=== PATIENT | male | born 1990 | race Caucasian/White ===

== ENCOUNTER 2024-08-06 09:57 | Emergency (ER) | payer MEDICAID ==
[~2024-08-06] VITALS: Ht 165.1 cm; Wt 82.5 kg
[2024-08-06 10:24] VITALS: TEMP 97.8
[2024-08-06] MEDS ORDERED: BENZ-38 PO (12:03)
[2024-08-06 12:18] VITALS: BP 126/75; PULSE 87; RESP 15; O2SAT 99
== END 2024-08-06 12:23 | disposition home or self-care (01) ==
LOC: ER 09:58
DX: J22 Unspecified acute lower respiratory infection (principal)
CPT/HCPCS: 71045; 99283

== ENCOUNTER 2024-10-06 10:27 | Emergency (ER) | payer MEDICAID ==
[~2024-10-06] VITALS: Ht 170.2 cm; Wt 79.5 kg
[2024-10-06 10:37] VITALS: BP 116/72; PULSE 83; RESP 18; O2SAT 99
[2024-10-06 11:33] VITALS: TEMP 98.4
== END 2024-10-06 11:35 | disposition home or self-care (01) ==
LOC: ER 10:27
DX: Z02.9 Encounter for administrative examinations, unspecified (principal); F11.90 Opioid use, unspecified, uncomplicated
CPT/HCPCS: 99281

== ENCOUNTER 2024-12-02 03:45 | Emergency (ER) | payer MEDICAID ==
[~2024-12-02] VITALS: Ht 170.2 cm; Wt 81.4 kg
[2024-12-02] MEDS: ketorolac trometh 30MG/ML vial 30 MG/ML VIAL IM ONE (04:31)
[2024-12-02] MEDS: TETanus/Pertussis (Acell)/Diphther VAC/PF (Tdap-Adult) 0.5ml syringe IMVAC ONE (04:35)
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
[2024-12-02 05:08] LABS: BASOPHILS # (AUTO) 0.1 X10'3 (0-0.2); EOSINOPHILS # (AUTO) 0.1 X10'3 (0-0.9); EOSINOPHILS % (AUTO) 0.9 % (0-6); HEMATOCRIT 39.5 % (42.0-52.0); HEMOGLOBIN 13.3 g/dl (14.0-17.9); LYMPHOCYTES # (AUTO) 3.4 X10'3 (1.1-4.8); LYMPHOCYTES % (AUTO) 43.4 % (21-51); MEAN CORPUSCULAR HEMOGLOBIN 29.6 PG (27.0-31.0); MEAN CORPUSCULAR HGB CONC 33.8 g/dL (33.0-36.5); MEAN CORPUSCULAR VOLUME 87.7 FL (78-98); MEAN PLATELET VOLUME 7.5 FL (7.4-10.4); MONOCYTES # (AUTO) 0.9 X10'3 (0-0.9); MONOCYTES % (AUTO) 11.5 % (2-12); NEUTROPHILS # (AUTO) 3.3 X10'3 (1.8-7.7); NEUTROPHILS % (AUTO) 43.2 % (42-75); PLATELET COUNT 217 X10'3 (140-440); RED CELL DISTRIBUTION WIDTH 14.8 % (11.5-14.5); WHITE BLOOD COUNT 7.7 X10'3 (4.5-11.0)
[2024-12-02 05:22] LABS: ALBUMIN 3.6 G/DL (3.4-5.0); ANION GAP 12 (8-16); BLOOD UREA NITROGEN 9 MG/DL (7-18); BUN/CREATININE RATIO 7.9 (10.0-20.0); CALCIUM 7.9 MG/DL (8.5-10.1); CHLORIDE 103 MMOL/L (99-107); CREATININE 1.14 MG/DL (0.60-1.10); ETHANOL 105 MG/DL (<10); GLUCOSE 144 MG/DL (70-104); SODIUM 141 MMOL/L (135-145); TOTAL CARBON DIOXIDE 25.9 MMOL/L (24-32); eCRCL 85 ML/MIN; eGFR 73 ML/MIN
[2024-12-02 05:44] LABS: POTASSIUM 2.7 MMOL/L (3.5-5.1)
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
[2024-12-02] MEDS ORDERED: potassium bicarbonate/cit acid 25mEq tablet.effervescent PO SCH (06:00)
[2024-12-02] MEDS: LIDOcaine 1% 30ml preserv. free vial SQ STA (06:04)
[2024-12-02 06:25] VITALS: BP 138/77; PULSE 87; RESP 20; O2SAT 99
[2024-12-02 07:11] VITALS: TEMP 98.6
[2024-12-02] MEDS: POTASSIUM BICARB 20meq eff tab 20 MEQ TABLET.EFF PO SCH (07:14)
== END 2024-12-02 07:18 | disposition home or self-care (01) ==
LOC: ER 03:45
DX: S61.212A Laceration without foreign body of right middle finger without damage to nail, initial encounter (principal); S60.221A Contusion of right hand, initial encounter; F12.90 Cannabis use, unspecified, uncomplicated; G89.11 Acute pain due to trauma; Y04.8XXA Assault by other bodily force, initial encounter; Y93.89 Activity, other specified; Y92.89 Other specified places as the place of occurrence of the external cause; Y99.8 Other external cause status
CPT/HCPCS: 12001; 36415; 73130; 80048; 80320; 85025; 90471; 90715; 96372; 99284; J1885; J2003; J7030; A6449

== ENCOUNTER 2024-12-07 00:26 | Emergency (ER) | payer MEDICAID ==
[~2024-12-07] VITALS: Ht 170.2 cm; Wt 75.0 kg
[2024-12-07] MEDS: sulfamethoxazole/trimethoprim DS (800/160mg) tablet PO ONE (01:38)
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
[2024-12-07] MEDS ORDERED: SULF1TAB45 PO (01:59)
[2024-12-07 02:33] VITALS: BP 116/76; PULSE 82; RESP 16; TEMP 98.2; O2SAT 99
== END 2024-12-07 02:45 | disposition home or self-care (01) ==
LOC: ER 00:27
DX: T81.49XA Infection following a procedure, other surgical site, initial encounter (principal); Y92.89 Other specified places as the place of occurrence of the external cause
CPT/HCPCS: 99283

== ENCOUNTER 2024-12-09 00:14 | Emergency (ER) | payer MEDICAID ==
[~2024-12-09] VITALS: Ht 170.2 cm; Wt 75.5 kg
[~2024-12-09 00:14] MED LIST: SULF1TAB45 PO
[2024-12-09 00:19] VITALS: TEMP 98.2
[2024-12-09] MEDS: LIDOcaine 1% W/epiNEPHrine 1:100,000 20ml vial SQ ONE (03:20)
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
[2024-12-09 04:21] VITALS: BP 145/76; PULSE 90; RESP 18; O2SAT 99
== END 2024-12-09 04:22 | disposition home or self-care (01) ==
LOC: ER 00:15
DX: S61.212D Laceration without foreign body of right middle finger without damage to nail, subsequent encounter (principal); X58.XXXD Exposure to other specified factors, subsequent encounter
CPT/HCPCS: 96372; 99283; A6222; J3490; 99281

== ENCOUNTER → 2024-12-18 | Emergency (ER) | payer MEDICAID ==
[~2024-12-18] VITALS: Ht 172.7 cm; Wt 65.0 kg
[2024-12-18 01:13] VITALS: BP 145/65; PULSE 75; RESP 15; TEMP 96.8; O2SAT 99
== END | disposition left against medical advice (07) ==
LOC: ER 02:42
DX: S61.411A Laceration without foreign body of right hand, initial encounter (principal); Z53.21 Procedure and treatment not carried out due to patient leaving prior to being seen by health care provider; W45.8XXA Other foreign body or object entering through skin, initial encounter; Y93.89 Activity, other specified; Y92.89 Other specified places as the place of occurrence of the external cause; Y99.8 Other external cause status

== ENCOUNTER 2025-02-27 19:50 | Emergency (ER) | payer MEDICAID ==
[~2025-02-27] VITALS: Ht 170.2 cm; Wt 71.5 kg
[2025-02-27 21:05] VITALS: BP 113/75; PULSE 101; RESP 17; TEMP 98.4; O2SAT 96
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
== END 2025-02-27 21:55 | disposition left against medical advice (07) ==
LOC: ER 19:51
DX: R42 Dizziness and giddiness (principal); R55 Syncope and collapse; R51.9 Headache, unspecified
CPT/HCPCS: 99283

== ENCOUNTER 2025-04-30 10:02 | Emergency (ER) | payer MEDICAID ==
[~2025-04-30] VITALS: Ht 170.2 cm; Wt 74.6 kg
[2025-04-30 10:11] VITALS: TEMP 97.9
--- NOTE | 2025-04-30 14:37 | RADIOLOGY REPORT ---
CHEST RADIOGRAPH Indication: Cough, diminshed to ausc Technique: Frontal and lateral view of the chest was obtained Comparison: DI CHEST,SINGLE VIEW on DOS: 08/06/24 FINDINGS: Lines and Tubes: None Lungs: Clear Pleura: No effusion. No pneumothorax. Cardiomediastinal contours: Unremarkable Bones: Unremarkable IMPRESSION: No evidence of acute disease.
[2025-04-30 15:14] LABS: STREP A SCREEN NEGATIVE (Neg)
--- NOTE | 2025-04-30 16:02 | Physician Documentation ---
History of Present Illness ~ Chief Complaint: Cold, cough & congestion Stated Complaint: COLD SYMPTOMS Time Seen by MD: 14:00 Primary Medical Doctor: NONE HPI Patient is a 34-year-old male that presents to the emergency department for evaluation of cough cold congestion x4 days. Patient reports possible fevers denies nausea vomiting diarrhea at this time. Patient reports that his specific symptoms or congestion in his nose pressure in his head cough and congestion in his chest. Patient denies any other symptoms at this time. Medication Reconciliation Allergies: Coded Allergies: No Known Allergies (Unverified , 04/30/25) Review of Systems ROS As stated above in the HPI, otherwise all systems are reviewed and negative. Physical Exam Vital Signs: Temperature: 97.9, Source: Temporal, Heart Rate: 84, Respiratory Rate: 16, BP: 119/84, Pulse Oximetry: 98, Weight: 74.600 Oxygen Flow Rate: 0 Physical Exam VITALS: Reviewed and as above. GENERAL: Alert, no apparent distress. HEENT: Normocephalic, atraumatic, PERRL, EOMI, dry mucosa, no erythema, congestion and rhinorrhea noted. RESPIRATORY: Lungs clear, normal breath sounds, no respiratory distress. CHEST: No accessory muscle use, no retractions, mild rhonchi with auscultation cleared with coughing. CV: Regular rate, rhythm, no edema, no murmur, No: JVD GI: Soft, non-tender, bowels sounds present, no rebound, guarding, or rigidity BACK: No CVA tenderness, or swelling MUSCULOSKELETAL No deformities, no edema SKIN: Warm and dry, no rash NEURO: Oriented x4, No motor or sensory deficit PSYCH: Normal mood and affect, no agitation Progress Results/Orders Results/Orders Orders - NATIVIDAD ALBARRAN Chest,Two Views (04/30/25 14:22) Influenza Type A&B Rapid Test (04/30/25 15:05) Cult Throat + R/O Beta Strep (04/30/25 15:14) Completed Orders - NATIVIDAD ALBARRAN Strep A Rapid (04/30/25 14:22) Chest,Two Views (04/30/25 14:22) Vital Signs 04/30/25 10:11 Temp 97.9 Pulse 84 Resp 16 B/P (MAP) 119/84 Pulse Ox 98 O2 Flow Rate 0 Laboratory Tests Test 04/30/25 14:45 04/30/25 15:13 Group A Streptococcus Rapid Negative Medical Decision Making Additional information obtaine: other Findings 34-year-old male presented to the emergency department with cough, cold, and congestion for four days. Initial symptoms included head congestion, progressing to chest congestion. No fever, dyspnea, or chest pain reported. Physical exam was unremarkable. Laboratory diagnostics and chest X-ray were negative for pneumonia or other acute pathology. Diagnosis: Acute upper respiratory infection (likely viral). No evidence of bacterial infection or pneumonia. Antibiotics were not indicated, consistent with guidelines recommending against their use in uncomplicated viral upper respiratory tract infections. Symptom management was discussed, including: Increased oral fluid intake Acetaminophen and ibuprofen as needed for pain or fever Supportive care measures Patient was educated that symptoms typically peak within 3 days and resolve within 1014 days.Advised to monitor for worsening symptoms or development of red flag signs (e.g., high fever, shortness of breath, chest pain, persistent symptoms >10 days, or new focal findings), and to return to the ED if these occur. Follow-up: Patient instructed to follow up with primary care provider for ongoing care or if symptoms persist beyond expected course. No antibiotics or antivirals prescribed. No evidence of complications requiring further intervention. Patient stable for discharge. Differential Dx:Considerations: Include: Allergic rhinitis, Influenza, Otitis media, Peritonsillar abscess, Pharyngitis-Diphtheria, Pharyngitis-Streptoccal, Pharyngitis-Viral, Pneumonia, Pnuemonitis, Sinusitis, URI, Other Departure Disposition: 01 HOME / SELF CARE / HOMELESS Impression: Primary Impression: Viral upper respiratory infection Condition: Stable Discharge Instructions: Upper Respiratory Infection, Adult, Cough, Adult Additional Instructions: You have been diagnosed with a viral upper respiratory infection (common cold). This is a common illness that usually gets better on its own. Your tests and chest X-ray did not show any signs of pneumonia or a serious infection. What to expect: Symptoms like cough, congestion, and runny nose usually peak in the first few d ays and then slowly improve. Most people feel better within 10 to 14 days, but some symptoms may last up to 2 weeks. How to feel better: Rest and drink plenty of fluids. You may use acetaminophen (Tylenol) or ibuprofen (Advil, Motrin) as needed for pain, fever, or discomfort. Usnj-gtf-[id number] saline nasal sprays or rinses can help with congestion. Other gwoy-jup-cebdirm cold remedies may help with symptoms, but use them as directed and talk to your pharmacist if you have questions. What NOT to do: Antibiotics are not needed for viral infections and will not help you get better faster. Avoid using decongestant nasal sprays for more than 3 days, as this can cause more congestion. When to seek help: Return to the emergency department or contact your doctor if you have: Trouble breathing or shortness of breath Chest pain High fever that does not go down with medicine Symptoms that get worse after starting to improve Symptoms lasting more than 2 weeks without improvement Severe headache, neck stiffness, or confusion Follow-up: Make an appointment with your primary care provider if you are not improving as expected or if you have any concerns. Take care and get well soon! Referrals: NO PRIMARY CARE PROVIDER (PCP) Education Educated: Patient Educated regarding: diagnosis, treatment, need for follow up Signature Scribe Signature: A Attestation: Scribed for Natividad Albarran by KATERIN Hawkins . 04/30/25 16:02 NATIVIDAD ALBARRAN Apr 30, 2025 16:02
[2025-04-30 16:17] VITALS: BP 113/73; PULSE 57; RESP 20; O2SAT 99
== END 2025-04-30 16:18 | disposition home or self-care (01) ==
LOC: ER 10:02
DX: J06.9 Acute upper respiratory infection, unspecified (principal); B97.89 Other viral agents as the cause of diseases classified elsewhere; Z20.822 Contact with and (suspected) exposure to COVID-19
CPT/HCPCS: 36415; 71046; 87081; 87811; 87880; 99284